=== PATIENT | female | born 1975 | race Hispanic/Latino ===

== ENCOUNTER 2024-05-01 23:53 | Emergency (ER) | payer SELFPAY ==
[2024-05-01 23:57] VITALS: BP 165/83
--- NOTE | 2024-05-02 00:20 | ED.GENMED ---
History of Present Illness
General
Chief Complaint: Dental Problem
Source: patient
Exam Limitations: none
Time Seen by Provider: 05/02/24 00:15
Travel History
Have you had any contact with someone who has COVID-19?: No
Do you have any symptoms of coronavirus? Fever > 100 degrees, chills, cough, shortness of breath, sore throat, loss of taste or smell, muscle aches, or headache?: No
History of Present Illness
History of Present Illness:
See MDM
Past History
Past History
ED Past Medical History: None
ED Past Surgical History: Cholecystectomy and
Social History
Tobacco: Non-smoker
Alcohol: None
Personal:
Living: with family
Employment: Not employed
Phy Exam
Physical Exam
Physical Exam:
See MDM
Course
Orders/Labs/Results
Orders:
Orders
05/02/24 00:18
Amoxicillin 875 mg/Clav 125 mg [Augmentin 875 mg/125 mg] 1 tablet PO NOW STA
Oxycodone/Acetaminophen [Percocet 5/325] 1 tablet PO NOW STA
Vital Signs
Initial and Last Documented VS:
Initial Vital Signs
Temp Pulse Resp BP Pulse Ox
98.4 F 60 18 165/83 96
05/01/24 23:57 05/01/24 23:57 05/01/24 23:57 05/01/24 23:57 05/01/24 23:57
Last Documented Vital Signs
Temp Pulse Resp BP Pulse Ox
98.4 F 60 18 165/83 96
05/01/24 23:57 05/01/24 23:57 05/01/24 23:57 05/01/24 23:57 05/01/24 23:57
MDM/Problems Addressed
Differential Diagnosis Includes:
HPI and MDM Narrative:
49-year-old female presenting with right lower dental pain. She states she fractured her tooth 2 weeks ago. Pain is progressed over the past few days. No fevers. She is planning on seeing a dentist on Friday or Friday. Family member gave a
dose of Augmentin prior to coming
On exam, patient has a fractured tooth in the right lower first molar. No gingival abscess appreciated
Physical exam
General: Mildly uncomfortable
HEENT: protecting airway. Fractured tooth to right lower first molar. No gingival abscess
Neck: appears supple
CV: No evidence of cyanosis
Resp: No accessory muscle use
Abd: Non-distended
Extremities: No deformities
Neuro: alert
Psych: Normal affect
Skin: Intact
Problems Addressed including Acute and Chronic Conditions affecting care:
1. Dental pain
Acuity: acute
Prognosis: stable
Details: Concern for apical abscess. Will start Augmentin. Patient given Percocet. Discussed the importance of follow-up with dentistry
Differential Diagnosis (but not limited to): Dental caries, able to abscess
Testing considered: CT maxillofacial
Drug therapy (if applicable): OTC meds, please see d/c instruction regarding Rx drugs
Amount and/or Complexity of Data Reviewed
Clinical info obtained from: Patient
External data reviewed: N/A
Labs I independently reviewed (but not limited to): N/A
Radiology: N/A
Pulse Ox: not hypoxic
EKG independently reviewed: N/A
Knitting Teacher: N/A
Critical Care: N/A
Risk of Complication:
Social Determinants of health: Good social support
Discussed with other providers: N/A
Escalation of Care includes Admit/Obs: After being observed in the Emergency Department, pt stable for discharge.
Occasional wrong word or 'sound a like' substitutions may have occurred due to the inherent limitations of voice recognition software. Read the chart carefully and recognize, using context, where substitutions have occurred.
*Critical Care Note
Total Time (30-74mins, 75-104mins- exclusive of procedures): Not Applicable
ED Attending Note
-
Portions of this chart may have been created with voice recognition software.� Occasional wrong word or��sound alike� substitutions may have occurred due to the inherent limitations of voice recognition software.
Discharge Plan
Departure
Patient Disposition: Home (Routine Discharge)
Date of Disposition: 05/02/24
Time of Disposition: 00:25
Patient with high blood pressure during this ER visit?: Yes
Discharge Problem:
Pain due to dental caries
Instructions: Fractured Tooth (DC), BLOOD PRESSURE
Prescriptions:
New
diclofenac potassium 50 mg tablet
50 mg PO BID Qty: 20 0RF
amoxicillin-pot clavulanate 875-125 mg tablet
1 tab PO BID Qty: 14 0RF
oxycodone 5 mg tablet
5 mg PO Q8H PRN (Reason: Pain) Qty: 10 0RF
No Action
ciprofloxacin HCl 0.3 % drops
2 drp ophthalmic (eye) Q4H Qty: 5 0RF
Activity Restrictions/Additional Instructions:
Please return for any worsening symptoms.
You may return at any time if you have further concerns.
Please follow up with with the dentist first thing next week.
Thank you for choosing [facility].
Discharge Date and Time
Print Language: GREEN[place]
[2024-05-02] MEDS: PERCOCET 5/325 1 TABLET PO (00:26)
[2024-05-02 00:28] VITALS: BMI 33.0
== END 2024-05-02 00:42 | disposition home or self-care (01) ==
LOC: EMR 23:53
PROVIDERS: EMERGENCY PHYSICIAN Student in an Organized Health Care Education/Training Program
DX: K02.9 Dental caries, unspecified (principal)
CPT/HCPCS: 99282